=== PATIENT | male | born 1965 | race African-American/Black ===

== ENCOUNTER → 2017-09-29 08:53 | Outpatient (CLI) | payer BC | END | disposition home or self-care (01) | LOC: D.US | DX: R16.0 Hepatomegaly, not elsewhere classified (principal) ==

== ENCOUNTER 2018-11-16 08:28 | Emergency (ER) | payer BC ==
[~2018-11-16] VITALS: Ht 188 cm; Wt 85.5 kg
[2018-11-16 09:17] VITALS: Ht 188 cm; Wt 85.5 kg
[2018-11-16] MEDS ORDERED: NORVASC5 MG PO (09:20)
[2018-11-16 10:10] LABS: HEMATOCRIT 44.5 % (42.0-54.0); HEMOGLOBIN 15.6 g/dL (13.5-17.5); MCH 31.8 pg (26.0-34.0); MCHC 35.1 g/dL (31.0-37.0); MCV 90.6 fL (80.0-100.0); MEAN PLATELET VOLUME 9.7 fL (7.4-10.4); NEUTROPHILS 73.9 % (40-80); PLATELET COUNT 247 10x3/uL (130-400); RBC 4.91 10x6/uL (4.20-6.10); RDW 11.3 % (11.5-14.5); WBC 8.6 10x3/uL (4.8-10.8)
[2018-11-16 10:12] LABS: INR 1.03 (0.85-1.17)
[2018-11-16 10:15] LABS: ALBUMIN 3.8 g/dL (3.4-5.0); ALKALINE PHOSPHATASE 92 U/L (46-116); ALT (SGPT) 21 U/L (10-68); BILIRUBIN - TOTAL 0.95 mg/dL (0.2-1.3); CALC OSMOLALITY 275 mosm/kg (275-300); CALCIUM 9.6 mg/dL (8.5-10.1); CARBON DIOXIDE 26.2 mmol/L (21.0-32.0); CHLORIDE - SERUM 99 mmol/L (98-107); CREATININE - SERUM 1.3 mg/dL (0.6-1.3); GLUCOSE 120 mg/dL (74-106); POTASSIUM - SERUM 3.9 mmol/L (3.5-5.1); PROTEIN - SERUM 8.5 g/dL (6.4-8.2); SODIUM 137 mmol/L (136-145); UREA NITROGEN 15 mg/dL (7-18); eGFR NON AFRICAN AMERICAN 61 mL/min (90-120)
[2018-11-16 10:30] LABS: CKMB 1.2 U/L (0.0-3.6); CREATINE KINASE 138 UL (21-232); MAGNESIUM - SERUM 2.1 mg/dL (1.8-2.4)
[2018-11-16 10:31] LABS: TROPONIN-I < 0.017 ng/mL (0.000-0.060)
[2018-11-16 13:50] VITALS: BP 131/79
== END 2018-11-16 13:50 | disposition home or self-care (01) ==
LOC: D.ER 08:28
PROVIDERS: Family Medicine
DX: R06.02 Shortness of breath (principal); R00.0 Tachycardia, unspecified